=== PATIENT | male | born 1950 | race Two or more races ===

== ENCOUNTER 2018-10-18 12:26 | Emergency (ER) | payer MEDICARE ==
[~2018-10-18] VITALS: Ht 167.6 cm; Wt 90.7 kg
[2018-10-18] MEDS ORDERED: ACETAMINOPHEN ES 500 MG TABLET PO ONE (13:00)
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
[2018-10-18] MEDS ORDERED: ACETAMINOPHEN ES 500 MG TABLET ONE (13:22)
--- NOTE | 2018-10-18 13:43 | NUR ---
poured concrete wall technician at bedside for x-ray.
[2018-10-18 14:51] VITALS: BP 124/71
--- NOTE | 2018-10-18 14:52 | NUR ---
Patient discharged to home in stable condition. Written and verbal after care instructions given. Patient verbalizes understanding of instruction.
== END 2018-10-18 14:52 | disposition home or self-care (01) ==
LOC: ER 12:38
DX: M25.562 Pain in left knee (principal); M25.511 Pain in right shoulder; R51 Headache; Z60.2 Problems related to living alone; V49.49XA Driver injured in collision with other motor vehicles in traffic accident, initial encounter; Y93.89 Activity, other specified; Y92.413 State road as the place of occurrence of the external cause; Y99.8 Other external cause status
CPT/HCPCS: 70450-TC; 72125-TC; 73030-TC; 73564-TC